=== PATIENT | female | born 1940 | race Caucasian/White ===

== ENCOUNTER → 2016-12-15 | Day surgery (SDC) | payer MEDICARE, OTHER ==
[~2016-12-15] MED LIST: ACETAMINOPHEN 1,000 MG/100 ML VIAL IV ONE; BUPIVACAINE HCL/PF 0.25% 10 ML VIAL INJ ONE; CEFAZOLIN SODIUM 1 GM in NORMAL SALINE MINI-BAG+ 100 ML IV ONE; CEFAZOLIN SODIUM 1 GM/10 ML VIAL ONE; DEXAMETHASONE 4 MG/ML VIAL ONE; EPHEDrine SULFATE 50 MG/ML VIAL ONE; FAMOTIDINE IN SALINE, ISO-OSM 20 MG/50 ML PIGGYBACK IV SCH; FAMOTIDINE IN SALINE, ISO-OSM 50 ML IV ONE; FENTANYL 100 MCG/2 ML VIAL IV PRN; FENTANYL 250 MCG/5 ML VIAL ONE; HEMOSTATIC MATRIX 5 ML SYR MISC ONE; LACTATED RINGERS 1,000 ML IV SCH; LIDOCAINE HCL 1% 20 ML VIAL SUBCUT ONE; METOCLOPRAMIDE HCL 10 MG/2 ML VIAL IV PRN; METOCLOPRAMIDE HCL 10 MG/2 ML VIAL ONE; MIDAZOLAM HCL 2 MG/2 ML SYR IV ONE; MIDAZOLAM HCL 2 MG/2 ML VIAL ONE; MORPHINE SULFATE 10 MG/ML SYR ONE; ONDANSETRON HCL 4 MG/2 ML VIAL IV ONE; ONDANSETRON HCL 4 MG/2 ML VIAL ONE; ROCURONIUM BROMIDE 50 MG/5 ML VIAL IV ONE; SCOPOLAMINE 1.5 MG PATCH ONE; SCOPOLAMINE 1.5 MG PATCH TD ONE; SUCCINYLCHOLINE CHLORIDE 200 MG/10 ML VIAL ONE; SUGAMMADEX SODIUM 200 MG/2 ML VIAL IV ONE
[2016-12-15 14:00] VITALS: TEMP 97.7
[2016-12-15] MEDS: MORPHINE SULFATE 10 MG/ML SYR IV PRN ×2 (14:08→14:22)
[2016-12-15 14:12] VITALS: RESP 16
--- NOTE | 2016-12-15 14:24 | PROCEDURE NOTE: Gen Surgery ---
General Surgery Procedure Note - Date of Encounter Date of Encounter: 12/15/16 - Brief Operative Note (1) Incisional hernia Date of procedure: 12/15/16 Pre-Op Diagnosis: incisional hernia Post-op diagnosis: same Procedure: Repair of hernia with mesh Anesthesia Type: General Pathology: none sent Images viewed by surgeon: No Images viewed by radiologist: No Sponge and instrument counts: correct Condition: stable (2) Thyroid nodule Date of procedure: 12/15/16 Pre-Op Diagnosis: thyroid nodule Post-op diagnosis: same Procedure: FNA of thyroid Anesthesia Type: General Physician: CANDELARIA TAO X-ray taken: No Images viewed by surgeon: No Images viewed by radiologist: No Sponge and instrument counts: correct Condition: stable Disposition: same day
[2016-12-15 15:06] VITALS: BP 107/71; PULSE 84; O2SAT 95
--- NOTE | 2016-12-15 17:05 | US REPORT ---
Ultrasound guidance was provided for thyroid biopsy performed by Dr. Chan. SANDRITA
--- NOTE | 2016-12-16 02:11 | OPERATIVE REPORT ---
SURGEON: Alfred Chan MD ANESTHESIA: General endotracheal (Elvin Laguerre CRNA). PREOPERATIVE DIAGNOSES 1. Recurrent ventral hernia. 2. Left thyroid nodule. POSTOPERATIVE DIAGNOSES 1. Recurrent ventral hernia. 2. Left thyroid nodule. PROCEDURE PERFORMED 1. Repair of recurrent ventral incisional hernia with mesh. 2. FNA biopsy with image guidance of left thyroid nodule. FINDINGS: There was an approximately 1.5 cm round defect noted just above the umbilicus. The fascial edges were noted to be paper thin. This was opened up and a preperitoneal mesh was planned to be placed. With further dissection below the umbilicus was another 5 mm hernia defect that had preperitoneal fat throughout within it. It was felt that all these should be repaired in continuity. It was decided to close this defect and use an onlay patch of ProGrip. The thyroid nodule was in the midportion of the left lobe of the thyroid. There was a vein that was just above this area making it slightly difficult to access. The consistency of the nodule was soft. SUMMARY: The patient was taken to the operating room and placed in the supine position. She was given the smooth induction of general anesthesia via the endotracheal tube. Her abdomen was prepped with ChloraPrep solution. Time out was called and the correct patient, correct preoperative medications and correct procedure were verified. By this time 3 minutes had been allowed to elapse for the prep to dry. Draping then occurred. An incision was sharply fashioned above the umbilicus after infiltrating with 0.25% Marcaine without epinephrine. Dissection was carried down to the hernia defect. This was dissected from the surrounding edges and reduced. The fascial edges were then grasped. Preperitoneal space was then further developed. It was noted that the fascia was quite thin so it was felt a mesh repair was indicated being that this was a recurrent hernia. With further digital dissection in the preperitoneal space another hernia was noted just below the umbilicus. These two were combined to make one large defect. It was decided to use an onlay type mesh to repair this. Therefore the fascia was reapproximated with a running 2-0 PDS suture. Next, the tissues on top of the fascia were dissected free and a 6 x 10 cm piece of ProGrip was cut and then placed on top of this defect. It fit well and therefore was not sewn in place. Floseal was also placed underneath the mesh. A Dae-Chaparro drain was then placed on top of the mesh. The subcutaneous tissues were reapproximated with running 3-0 Vicryl. The skin was closed with running subcuticular 4-0 Monocryl. The drain was sewn to the skin with a 2-0 Prolene suture. Steri- Strips and a dressing were applied. The drain was attached to suction. Next, the patient was positioned and the nodule was noted in the left thyroid. Her neck was positioned so that easy access to the nodule could be obtained. Four passes were made into the nodule for cytology. The needles were saved and slides were made. There was also an additional pass made and a marker study was set. She tolerated this well. The patient was then extubated and sent to the recovery room. SANDRITA
--- NOTE | 2016-12-20 10:32 | PREOPERATIVE H&P ---
History of Present Illness (Alfred Chan M.D.; 12/13/2016 11:09 AM) The patient is a 76 year old female who presents with an umbilical hernia. This hernia is thought to be acquired. The last clinic visit was 1 week ago. Symptoms include bulge at the umbilicus, while symptoms do not include abdominal pain. The pain is located in the mid-abdomen. There is no radiation. The patient describes the pain as sharp. Onset was sudden 2 weeks ago when she had recent problems with upper respiratory infection and was coughing. The symptoms occur rarely. Pain has resolved at this time. This hernia has previously been repaired once (2005). Allergies (Mellissa Hill R.N.; 12/13/2016 10:56 AM) Penicillins (Amoxicillin, Augmentin, Unasyn...) Hives FHP Penicillin VK *PENICILLINS* Hives, stomach cramps. Family History (Mellissa Hill R.N.; 12/13/2016 10:59 AM) Father at age 87 from emphysema and AR. Coronary artery disease, COPD. Tobacco use history. CHF. Sister Age 63 Osteopenia. Doing well 2015. Negative Family History of breast, uterine, ovarian or colorectal cancer Mother 12/2014-Coronary artery disease, HTN. Depression for years. Osteoporosis. 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 No grandchildren. Marital status to [place] 1962, 2 children. Tobacco Use Never smoker. Caffeine use 2 or 3 cups of coffee in the am. Current Work/Study Status Retired Alcohol Use Occasional alcohol use. Glass of wine once per week, at most. Exercise Now walking at times. Pool exercises. Medication History (Mellissa Hill R.N.; 12/13/2016 10:59 AM) Estring (2MG Ring, 1 Vaginal every three months, Taken starting 03/15/2016) Active. (handwritten) Atorvastatin Calcium (20MG Tablet, 1 Oral daily, Taken starting 01/16/2016) Active. AmLODIPine Besylate (10MG Tablet, 1 (one) Oral daily, Taken starting 01/16/2016 ) Active. Losartan Potassium-HCTZ (50-12.5MG Tablet, 1 (one) Oral daily, Taken starting 01/16/2016) Active. Estradiol (0.125 mg/g apply pea sized amount twice weekly, Taken starting 09/29) Inactive. (Topical cream to treat urethral caruncle) Vitamin D (2000UNIT Tablet, 1 Oral daily, Taken starting 07/09/2013) Active. Fish Oil (1000MG Capsule, 1 Oral daily) Active. Lutein Vision Blend (1 Oral daily) Active. Biotin (5000MCG Tablet, 1 Oral daily) Active. Premarin (0.625MG/GM Cream, pea size amount Vaginal three times per week) Active. Medications Reconciled Past Surgical History (Mellissa Hill R.N.; 12/13/2016 10:59 AM) Breast Bx nl left Umbilical Wevzsj96/2006 Chan Cataract Removal, Insert Prosthetic Lens01/2012 Right eye, Dr. Weeks, [facility]. Left eye, Dr. Weeks, [facility] 02/2012 Review of Systems (Alfred Chan M.D.; 12/13/2016 11:13 AM) General Present- Feeling well. Not Present- Chills and Fever. HEENT Not Present- Hoarseness, Oral Ulcers, Radiation Treatment and Sore Throat. Gastrointestinal Note: hernia was repaired in 2005. There is occasional pain with cough in the area. Vitals (Mellissa Hill R.N.; 12/13/2016 10:56 AM) 12/13/2016 10:51 AM Weight: 137 lb Height: 61in Body Surface Area: 1.61 m Body Mass Index: 25.89 kg/m Temp.: 98.4F(Temporal) Pulse: 80 (Regular) P.OX: 95% (Room air) BP: 130/76 (Sitting, Left Arm, Standard) Physical Exam (Alfred Chan M.D.; 12/13/2016 11:50 AM) Head and Neck Thyroid Gland Characteristics - smooth and no palpable nodules. Chest and Lung Exam Chest and lung exam reveals -Clear. Cardiovascular Cardiovascular examination reveals -RRR, No murmurs present. Abdomen Inspection Incisional scars - umbilical. Hernias - Direct umbilical hernia - Reducible. Note: This defect seems to be above the umbilicus and not quite as large as 2 of my fingers. Assessment & Plan (Alfred Chan M.D.; 12/13/2016 11:48 AM) Left thyroid nodule (E04.1) Current Plans FINE NDLE ASPRTN W/IMAGING GUIDANCE (24160) Recurrent umbilical hernia (K42.9) Current Plans RPR RCR INCSNL/VNTRL HERNIA, REDUC (37742) MESH FOR REPAIR OF VENTRAL OR INCISIONAL THEE (21717) Started Hydrocodone-Acetaminophen 5-325MG, 1 (one) Tablet every four hours, as needed, #10, 5 days starting 12/13/2016, No Refill. Started Ondansetron 4MG, 1 Tablet Disperse every four hours, as needed, #10, , No Refill. Pt Education - Dr Chan's Post Op Instructions: discussed with patient and provided information. Note:The risks of wound infection, bleeding, hernia recurrance and chronic pain were discussed. We briefly discussed the anesthetic choices and noted that this could be more thoroughly reviewed with the napper tender. Post op instructions were provided. A script for kenia and connie were given. Signed by Alfred Chan M.D. (12/13/2016 11:51 AM) SANDRITA
== END ==
LOC: SDS 10:56
PROVIDERS: ATTEND Surgery
DX: K42.9 Umbilical hernia without obstruction or gangrene (principal); E04.1 Nontoxic single thyroid nodule; E78.5 Hyperlipidemia, unspecified; I10 Essential (primary) hypertension; M85.80 Other specified disorders of bone density and structure, unspecified site; Z79.899 Other long term (current) drug therapy
CPT/HCPCS: 10022; 49568; 49585; 76942; C1781; J0690; J2250; J2270; J2405; J2765